=== PATIENT | male | born 1990 | race Caucasian/White ===

== ENCOUNTER 2020-12-09 11:50 | Emergency (ER) | payer BC ==
[~2020-12-09] VITALS: Ht 182.9 cm; Wt 99.8 kg
[2020-12-09 12:04] VITALS: BP 135/73
--- NOTE | 2020-12-09 12:05 | NUR ---
RIGHT HAND PAIN,CRUSHED BY METAL BED PART. RATES PAIN 5/10. DENIES NU,GOYO/TINGLING SENSATION. WILL CONTINUE TO MONITOR.
--- NOTE | 2020-12-09 13:29 | NUR ---
Patient discharged to home in stable condition. Written and verbal after care instructions given. Patient verbalizes understanding of instruction. The patient left ER in stable condition.
== END 2020-12-09 13:30 | disposition home or self-care (01) ==
LOC: ER 11:55
DX: S62.316A Displaced fracture of base of fifth metacarpal bone, right hand, initial encounter for closed fracture (principal); W20.8XXA Other cause of strike by thrown, projected or falling object, initial encounter; Y93.89 Activity, other specified; Y92.89 Other specified places as the place of occurrence of the external cause; Y99.8 Other external cause status
CPT/HCPCS: 73130-TC